=== PATIENT | female | born 1990 | race African-American/Black ===

== ENCOUNTER 2016-09-28 22:55 | Emergency (ER) | payer OTHER ==
[~2016-09-28 22:55] MED LIST: BACTRIM DS TABL1 TA1 PO; BACTRIM DS TABL1 TAB PO; CEPHALEXIN250 MG/5 M PO; DIFLUCAN PO; ELIMITE60 GM TOP; FLAGYL PO; KEFLEX PO; MACROBID 100 M100 MG PO; NO MEDICATIONS; SEPTRA SUSPENS100 ML PO; SKELAXIN PO; ULTRAM PO; VIBRAMYCIN100 M1 PO; VOLTAREN75 MG PO
== END 2016-09-28 23:18 | disposition home or self-care (01) ==
LOC: SED 22:55
DX: L03.113 Cellulitis of right upper limb (principal); T63.301A Toxic effect of unspecified spider venom, accidental (unintentional), initial encounter; T78.40XA Allergy, unspecified, initial encounter
CPT/HCPCS: 99282

== ENCOUNTER 2016-10-16 16:47 | Emergency (ER) | payer OTHER ==
[2016-10-16 17:50] LABS: URINE SOURCE CLEAN CATCH
[2016-10-16 17:52] LABS: URINE APPEARANCE CLEAR; URINE BILIRUBIN NEG (NEG); URINE BLOOD NEG (NEG); URINE COLOR YELLOW; URINE GLUCOSE NEG (NORM); URINE KETONE NEG (NEG); URINE LEUKOCYTE ESTERASE 1+ (NEG); URINE NITRATE NEG (NEG); URINE PH 5.5 (5-8); URINE PROTEIN NEG (NEG); URINE SPECIFIC GRAVITY 1.025 (1.003-1.035)
[2016-10-16 17:58] LABS: MICRO INDICATED? YES
[2016-10-16 18:05] LABS: URINE RBC 0-2 /[HPF] (0-2)
[2016-10-16 18:06] LABS: URINE BACTERIA NEG (NEG); URINE SQUAMOUS EPITHELIAL CELL MODERATE /[HPF]
[2016-10-20 10:09] LABS: CHLAMYDIA TRACH Not Detected (Not Detected); N GONOR Not Detected (Not Detected)
== END 2016-10-16 18:21 | disposition home or self-care (01) ==
LOC: SED 16:47
PROVIDERS: Physician Assistant
DX: N89.8 Other specified noninflammatory disorders of vagina (principal)
CPT/HCPCS: 81003; 84703; 87210; 87491; 87591; 87808; 87905; 99284